=== PATIENT | female | born 1965 | race Caucasian/White ===

== ENCOUNTER 2017-12-31 00:16 | Outpatient (CLI) | payer BC, SELFPAY ==
[2017-12-31 10:19] LABS: Abs Immature Grans 0.01 k/cumm (0.0-0.09); Absolute Basophil Count 0.01 k/cumm (0.0-0.2); Absolute Eosinophil Count 0.14 k/cumm (0.0-0.7); Absolute Lymphocyte Count 1.34 k/cumm (1.2-3.4); Absolute Monocyte Count 0.51 k/cumm (0.11-0.7); Absolute Neutrophil Count 3.27 k/cumm (1.2-6.7); Basophils % 0.2; Eosinophils % 2.7; HGB 13.6 g/dL (12.0-15.5); Immature Grans % 0.2; Lymphocytes % 25.4; Mean Corp. HGB Concentration 32.4 g/dL (32.0-36.0); Mean Corpuscular Hemoglobin 30.1 pg (27.0-33.0); Mean Corpuscular Volume 92.9 fL (80-95); Monocytes % 9.7; Neutrophils % 61.8; Platelet Count 180 x1000/uL (130-400); RBC 4.52 m/cumm (4.00-5.20); RBC Distribution Width 13.1 % (11.7-14.6); White Blood Cell Count 5.28 k/cumm (4.4-10.8)
== END 2017-12-31 00:36 ==
PROVIDERS: PCP Nurse Practitioner Family; Visit Provider Family Medicine
DX: E07.9 Disorder of thyroid, unspecified (principal); Z79.899 Other long term (current) drug therapy
CPT/HCPCS: 36415; 85025

== ENCOUNTER 2018-02-11 10:29 | Outpatient (CLI) | payer BC, SELFPAY ==
[2018-02-11 11:21] LABS: Absolute Basophil Count 0.03 k/cumm (0.0-0.2); Absolute Eosinophil Count 0.11 k/cumm (0.0-0.7); Absolute Lymphocyte Count 1.25 k/cumm (1.2-3.4); Absolute Monocyte Count 0.43 k/cumm (0.11-0.7); Absolute Neutrophil Count 3.12 k/cumm (1.2-6.7); Basophils % 0.6; Eosinophils % 2.2; HCT 40.7 % (36.0-46.0); HGB 13.4 g/dL (12.0-15.5); Lymphocytes % 25.3; Mean Corp. HGB Concentration 32.9 g/dL (32.0-36.0); Mean Corpuscular Hemoglobin 30.6 pg (27.0-33.0); Mean Corpuscular Volume 92.9 fL (80-95); Mean Platelet Volume 11.1 fL (8.0-11.0); Monocytes % 8.7; Neutrophils % 63.2; Platelet Count 186 x1000/uL (130-400); RBC 4.38 m/cumm (4.00-5.20); RBC Distribution Width 14.2 % (11.7-14.6); White Blood Cell Count 4.94 k/cumm (4.4-10.8)
== END 2018-02-11 10:49 ==
PROVIDERS: PCP Nurse Practitioner Family; Visit Provider Nurse Practitioner Family
DX: E07.9 Disorder of thyroid, unspecified (principal); Z79.899 Other long term (current) drug therapy
CPT/HCPCS: 36415; 85025

== ENCOUNTER 2018-04-22 00:39 | Outpatient (CLI) | payer BC, SELFPAY ==
[2018-04-22 11:42] LABS: FREE T4 0.77 ng/dL (0.76-1.46); TSH 5.87 uIU/mL (0.358-3.74)
== END 2018-04-22 00:59 ==
PROVIDERS: Internal Medicine; PCP Nurse Practitioner Family; Visit Provider Nurse Practitioner Family
DX: E05.90 Thyrotoxicosis, unspecified without thyrotoxic crisis or storm (principal)
CPT/HCPCS: 36415; 84439; 84443

== ENCOUNTER 2018-05-10 01:33 | Outpatient (CLI) | payer BC, SELFPAY ==
--- NOTE | 2018-05-10 12:00 | DI.MAMMO_ITS ---
SYMPTOMS/DIAGNOSIS: SCREENING, Z12.39 MAMMOGRAM: Mammograms were interpreted according to the usual protocol including computer analysis with CAD system, tomosynthesis and C view imaging. The breasts are extremely dense. No dominant mass identified in either breast. There are scattered punctate microcalcifications. There is a stable grouping of punctate microcalcifications in the lower inner quadrant of the right breast unchanged from previous examinations including 11/18. No other significant change seen. CONCLUSION: No specific evidence of malignancy at this time. Routine screening examinations are suggested at yearly intervals due to the family history of breast carcinoma. Category I. Breast density Category D. MQSA ASSESSMENT OF FINDINGS: Negative. Category 1. Patient will receive a letter notifying them of these results. BI-RADS category D. The breasts are extremely dense, which lowers the sensitivity of mammography.
== END 2018-05-10 01:53 ==
PROVIDERS: PCP Nurse Practitioner Family; Visit Provider Nurse Practitioner Family
DX: Z12.31 Encounter for screening mammogram for malignant neoplasm of breast (principal); Z80.3 Family history of malignant neoplasm of breast
CPT/HCPCS: 77063; 77067

== ENCOUNTER 2018-11-01 01:53 | Outpatient (CLI) | payer BC, SELFPAY ==
[2018-11-01 13:02] LABS: FREE T4 0.81 ng/dL (0.76-1.46); TSH 2.01 uIU/mL (0.36-3.74)
== END 2018-11-01 02:13 ==
PROVIDERS: PCP Nurse Practitioner Family; Visit Provider Internal Medicine
DX: E05.90 Thyrotoxicosis, unspecified without thyrotoxic crisis or storm (principal)
CPT/HCPCS: 36415; 84439; 84443

== ENCOUNTER 2019-01-30 01:53 | Outpatient (CLI) | payer BC, SELFPAY ==
--- NOTE | 2019-01-30 09:47 | DI.US_ITS ---
Right mammogram and right breast ultrasound CLINICAL HISTORY: BREAST LUMP N63.0, PEA SIZED NODULE RT, 7-8 CM FROM [facility]OLA, 10 OCLOCK TECHNIQUE: Mammograms were interpreted according to the usual protocol including computer analysis w travayl CAD system, tomosynthesis and C-view imaging. Right breast ultrasound was obtained. COMPARISON: Comparison is made with prior examinations. FINDINGS: No suspicious masses or microcalcifications are present on the right mammogram. Skin and axilla are u nremarkable. Breast Density - Category D - Extremely dense Right targeted breast ultrasound was performed. There is a well-circumscribed, radially oriented hypo echoic mass in subcutaneous tissues of the right breast. This corresponds to the palpable abnormality . It measures 0.9 x 0.5 cm. There is eccentric blood flow present. The finding is suggestive of a lym ph node. IMPRESSION: 1. No evidence for malignancy. Yearly mammography is recommended. 2. Well-circumscribed hypoechoic nodule corresponding to the palpable abnormality. The finding sonogr aphically is suggestive of a benign lymph node. 3. BI-RADS Cat 2 - Benign Findings 4. Breast Density - Category D - Extremely dense 5. The findings were discussed with the patient on the date of the examination. BI-RADS Cat 2 - Benign Findings. 6. Breast Density - Category D - Extremely dense
--- NOTE | 2019-01-30 10:39 | DI.MAMMO_ITS ---
Right mammogram and right breast ultrasound CLINICAL HISTORY: BREAST LUMP N63.0, PEA SIZED NODULE RT, 7-8 CM FROM AREOLA, 10 OCLOCK TECHNIQUE: Mammograms were interpreted according to the usual protocol including computer analysis w [employer] CAD system, tomosynthesis and C-view imaging. Right breast ultrasound was obtained. COMPARISON: Comparison is made with prior examinations. FINDINGS: No suspicious masses or microcalcifications are present on the right mammogram. Skin and axilla are u nremarkable. Breast Density - Category D - Extremely dense Right targeted breast ultrasound was performed. There is a well-circumscribed, radially oriented hypo echoic mass in subcutaneous tissues of the right breast. This corresponds to the palpable abnormality . It measures 0.9 x 0.5 cm. There is eccentric blood flow present. The finding is suggestive of a lym ph node. IMPRESSION: 1. No evidence for malignancy. Yearly mammography is recommended. 2. Well-circumscribed hypoechoic nodule corresponding to the palpable abnormality. The finding sonogr aphically is suggestive of a benign lymph node. 3. BI-RADS Cat 2 - Benign Findings 4. Breast Density - Category D - Extremely dense 5. The findings were discussed with the patient on the date of the examination. BI-RADS Cat 2 - Benign Findings. Breast Density - Category D - Extremely dense.
== END 2019-01-30 02:13 ==
PROVIDERS: PCP Nurse Practitioner Family; Visit Provider Family Medicine
DX: N63.11 Unspecified lump in the right breast, upper outer quadrant (principal); R59.0 Localized enlarged lymph nodes
CPT/HCPCS: 76642; 77061; 77065; G0279

== ENCOUNTER 2019-03-15 12:28 | Outpatient (REF) | payer BC, SELFPAY ==
--- NOTE | 2019-03-15 11:30 | PAPFT_PTH ---
PATIENT: MARK THAKUR LOC: [facility] U#:[id number] AGE/SX: 54/F ROOM: RE03/15/[address]: CATE Mann : 1965 BED: DIS: 03/15/2019 SPEC #: [id number] RECD: 03/15/19 12:55 STATUS: MUNIRA REQ #: [id number] LULY: 03/15/19 11:[address]: Jessica Weber DEPT: [facility] Cytology RECD BY: Jayla Williamson ENTERED: 03/15/19 12:55 SP TYPE: PAPFT OTHR DR: Antelmo Herrera Tissues: 1 - CX/ENDOCX FOR PAP SMEARS Procedures: PAP THIN PREP/UVM Screening HPV DNA PROBE Comments: [id number]
== END 2019-03-15 12:48 ==
LOC: LBN 12:28
PROVIDERS: PCP Nurse Practitioner Family; Visit Provider Nurse Practitioner Family
DX: Z12.4 Encounter for screening for malignant neoplasm of cervix (principal)
CPT/HCPCS: 88142; 87624

== ENCOUNTER 2019-04-02 01:40 | Outpatient (CLI) | payer BC, SELFPAY ==
[2019-04-02 11:19] LABS: FREE T4 0.77 ng/dL (0.76-1.46); TSH 1.49 uIU/mL (0.36-3.74)
== END 2019-04-02 02:00 ==
PROVIDERS: PCP Nurse Practitioner Family; Visit Provider Internal Medicine
DX: E05.90 Thyrotoxicosis, unspecified without thyrotoxic crisis or storm (principal)
CPT/HCPCS: 36415; 84439; 84443

== ENCOUNTER 2019-04-21 01:44 | Outpatient (CLI) | payer BC, SELFPAY ==
[2019-04-21 12:27] LABS: FREE T4 0.87 ng/dL (0.76-1.46); TSH 1.71 uIU/mL (0.36-3.74)
== END 2019-04-21 02:04 ==
PROVIDERS: PCP Nurse Practitioner Family; Visit Provider Internal Medicine
DX: E05.90 Thyrotoxicosis, unspecified without thyrotoxic crisis or storm (principal)
CPT/HCPCS: 36415; 84439; 84443

== ENCOUNTER 2019-10-16 16:48 | Outpatient (REF) | payer BC, SELFPAY ==
[2019-10-18 09:46] LABS: HBs Antibody, Quant <3.1 mIU/mL (See Note); Hepatitis B Surface Ab Negative (See Note)
== END 2019-10-16 17:08 ==
LOC: NCHCN 16:48
PROVIDERS: PCP Nurse Practitioner Family; Visit Provider Nurse Practitioner Family
DX: Z11.59 Encounter for screening for other viral diseases (principal); Z01.84 Encounter for antibody response examination
CPT/HCPCS: 86706

== ENCOUNTER 2020-05-09 20:06 | Outpatient (REF) | payer BC, SELFPAY ==
[2020-05-09 18:29] LABS: HCT 40.3 % (36.0-46.0); MCH 30.9 pg (27.0-33.0); MCHC 32.3 % (32.0-36.0); MCV 95.7 fL (80-95); MPV 11.1 fL (8.0-11.0); Platelet Count 203 10^3/uL (130-400); RBC 4.21 10^6/uL (3.93-5.22); RDW 13.4 % (11.7-14.6); RDW-SD 47.3 fL; WBC 7.87 10^3/uL (4.4-10.8)
[2020-05-09 19:37] LABS: ALT 16 U/L (14-59); AST 15 U/L (15-37); Albumin 3.9 g/dL (3.4-5.0); Alkaline Phosphatase 71 U/L (46-116); BUN 20 mg/dL (7-18); Bilirubin, Total 0.5 mg/dL (0.2-1.0); Calcium 9.2 mg/dL (8.5-10.1); Chloride 105 mmol/L (98-107); Estimated GFR 57.78 (mL/min/1.73m2); Folate 17.5 ng/mL (8.6-20.0); Glucose 80 mg/dL (74-106); Magnesium 1.9 mg/dL (1.8-2.4); Sodium 142 mmol/L (136-145); TSH (W/Ref FT4) 1.69 uIU/mL (0.36-3.74); Total Protein 7.3 g/dL (6.4-8.2); Vitamin B12 670 pg/mL (193-986)
[2020-05-12 10:43] LABS: Hepatitis C Ab w Rflx HCV PCR Negative (Negative)
[2020-05-12 11:37] LABS: HIV-1/2 Ag & Ab Screen Negative (Negative)
== END 2020-05-09 20:07 | disposition home or self-care (01) ==
LOC: NCHCN 20:06
PROVIDERS: PCP Nurse Practitioner Family; Visit Provider Nurse Practitioner Family
DX: R55 Syncope and collapse (principal); R07.9 Chest pain, unspecified; R06.02 Shortness of breath; Z11.4 Encounter for screening for human immunodeficiency virus [HIV]; Z11.59 Encounter for screening for other viral diseases
CPT/HCPCS: 80053; 85027; 86803; 87389; 82607; 82746; 83735; 84443

== ENCOUNTER 2020-05-13 00:46 | Outpatient (CLI) | payer BC, SELFPAY ==
--- NOTE | 2020-05-13 13:00 | ETT_ITS ---
APPROVED REPORT Exam: Exercise Treadmill Patient Location: Out-Patient Room/Bed: Stress Nurse: Maliha Henriquez RN Ordering Provider:LOKESH BONILLA, Contact Number: BMI: 22.09 Baseline Rhythm: Sinus Rhythm Comment: PVC Indications: chest pain, sob, smoker, fainting episodes Medical History Medical History: Grave's disease, childhood asthma, smoker Cardiac Medications: None Allergies: Amoxicillin, codeine Cardiac Risk Factors: Family hx, smoker, asthma (childhood) Previous Cardiac Procedures: None Pretest Chest Pain Characteristics: None Exercise History: Physically active Physical Disabilities: None Lung Sounds: Clear to auscultation Heart Sounds: Regular Stress Test Details Test: Exercise stress testing was performed using a Gareth protocol. Rest Stress HR Resting HR Supine: 61 bpm Max Heart Rate (APMHR): 166 bpm Resting HR Standin bpm Target HR (85% APMHR): 141 bpm Max HR Achieved: 152 bpm % of APMHR: 91 Recovery HR: 82 bpm HR response to stress: Normal HR response to stress BP Resting BP Supine: 116/72 mmHg Resting BP Standin/76 mmHg Max BP: 182/76 mmHg Recovery BP: 126/80 mmHg BP response to stress: Normal blood pressure response to stress. ECG Resting ECG: Sinus Rhythm Ectopy: PVC Stress ECG: Sinus Tachycardia ST Change: No significant ST segment changes noted Arrhythmia: Occassional PVCs, PAC Recovery ECG: Sinus Rhythm Recovery ST Change: No significant ST segment changes noted Recovery Arrhythmia: PACs Clinical Reason for Termination: Dyspnea, Fatigue Stress Symptoms: Dyspnea Exercise duration: 11 min14 sec Highest Stage Reached: Stage 4: 4.2 mph at 16% grade. Exercise capacity: 13.48 METs Kevin Treadmill Score: 11 Rate Pressure Product: [id number] Stress ECG Conclusion 1. The patient exercised for 11 minutes (13 METS). The patient had normal heart rate and blood press ure response to exercise 2. The patient had no symptoms suggestive of ischemia. There were occasional PVCs during peak exerti on. 3. There was no evidence of ischemia on the ECG portion of the exam. Kevin Treadmill Score is 11 which is Low risk. Stress Test Summary STAGE Time (mins) Speed (mph) Grade (%) HR BP SYMPTOMS METS Supine 61 116/72 Standing 77 118/76 1 3 1.7 10 98 126/72 4.6 2 6 2.5 12 124 144/76 SOB 7 3 9 3.4 14 152 160/78 10.2 1 min recovery 141 182/76 3 min recovery 87 168/80 symtoms resloved 6 min recovery 82 126/80
== END 2020-05-13 00:47 ==
LOC: DI 00:47
PROVIDERS: PCP Nurse Practitioner Family; Visit Provider Nurse Practitioner Family
DX: R06.02 Shortness of breath (principal); F17.210 Nicotine dependence, cigarettes, uncomplicated; R55 Syncope and collapse; Z82.49 Family history of ischemic heart disease and other diseases of the circulatory system; J45.909 Unspecified asthma, uncomplicated
CPT/HCPCS: 93017

== ENCOUNTER 2020-05-16 16:30 | Outpatient (RCR) | payer BC, SELFPAY ==
--- NOTE | 2020-05-16 16:30 | HOLTER_ITS ---
APPROVED REPORT Exam Type: HOLTER MONITOR APPLICATION Reason for Test: SOB R06.02, CHEST PAIN R07.9 Patient Location: O Conclusion This is a 48-hour Holter monitor ordered for indication of shortness of breath. 1 patient was in normal sinus rhythm for the majority of the recording with an average heart rate of 76 bpm. 2 patient had rare PACs and rare PVCs. 3 there were no episodes of ventricular tachycardia or supraventricular tachycardia. 4 there were no episodes of atrial fibrillation, no pauses greater than 3 seconds and no evidence of high degree heart block. 5 patient triggered events were associated with sinus rhythm and sinus tachycardia.
== END 2020-05-16 16:31 | disposition home or self-care (01) ==
LOC: RT 16:30
PROVIDERS: PCP Nurse Practitioner Family; Visit Provider Nurse Practitioner Family
DX: R06.02 Shortness of breath (principal); R07.9 Chest pain, unspecified
CPT/HCPCS: 93225; 93226

== ENCOUNTER 2020-06-05 02:25 | Outpatient (CLI) | payer BC, SELFPAY ==
--- NOTE | 2020-06-05 14:29 | DI.MAMMO_ITS ---
EXAM: MG MAMMO DIAGNOSTIC BI and U/S breast RT limited CLINICAL HISTORY: DIAGNOSTIC, RT BREAST LUMP, N63.0. TECHNIQUE: Craniocaudal and mediolateral oblique Full Field Digital Mammography views of the right b reast with Computer Aided Diagnosis followed by Tomosynthesis and right breast ultrasound. COMPARISON: Previous available for comparison. FINDINGS: Mammography/Tomosynthesis: Masses/Architectural Distortion: None seen. Microcalcifictions: No suspicious pleomorphic-type are seen. Skin Thickening/Nipple Retraction: None. Right breast US: Echotexture: Normal appearance of the glandular tissue. Shadowing: No suspicious foci. Cyst: None. Solid lesions: None seen. Ductal dilation: None. IMPRESSION: 1. No evidence of malignancy is noted. 2. Unless there is more urgent need, follow-up screening mammography is recommended, as per [employer] [place] [employer] guidelines. 3. The findings were discussed with the patient on the date of the examination. BI-RADS Category 1 - Negative Breast Density - Category D - Extremely dense Breast density Category C or D implies that the patient has dense breast tissue. Dense breast tissue can make it harder to find cancer on a mammogram. Dense breast tissue is also associated with an incr eased risk of breast cancer. This information about the result of the mammogram report was provided to the patient to raise their awareness. Use this report when you speak with the patient about their risks for breast cancer, which includes their family history. At that time, you may recommend additional screening tests (Ultrasoun d or MRI) as these tests may add significant information. A negative radiographic report should not delay biopsy if a dominant or clinically suspicious mass is present. Up to ten percent of cancers are not identified on mammography. A negative report may reinforce clinical impression. Adenosis and dense breasts may obscure an underlying neoplasm. False positive reports average 6 to 10%. Patient will receive a letter notifying them of these results.
--- NOTE | 2020-06-05 15:20 | DI.US_ITS ---
APPROVED REPORT EXAM: Comprehensive 2D, Doppler, and color-flow Echocardiogram Patient Location: Out-Patient [facility] Instructor: Gricel Zazueta RDCS (AE) Indications: Chest pain, SOB, Fainting episodes, Smoker Other Information Study Quality: Adequate Conclusion Left Ventricle : The left ventricle is normal size. The left ventricular systolic function is normal. The left ventricular ejection fraction is within the normal range. There is normal left ventricular wall thickness. There is normal LV segmental wall motion. The left ventricular diastolic function is normal. LVEF is 58%. Right Ventricle : The right ventricle is normal size. The right ventricular systolic function is norm al. Atria : The left atrium size is normal. The right atrium size is normal. Mitral Valve : The mitral valve is normal in structure. Mild mitral regurgitation. No evidence of akira ral valve stenosis. Great Vessels : The aortic root is normal in size. Ascending aorta is not well visualized. Aortic arc h is normal in caliber. IVC is normal in size and collapses >50% with inspiration. See remainder of study for further details. Wall motion Left Ventricle The left ventricle is normal size. The left ventricular systolic function is normal. The left ventric ular ejection fraction is within the normal range. There is normal left ventricular wall thickness. T here is normal LV segmental wall motion. The left ventricular diastolic function is normal. There is no ventricular septal defect visualized. LVEF is 58%. Right Ventricle The right ventricle is normal size. The right ventricular systolic function is normal. Atria The left atrium size is normal. The right atrium size is normal. The interatrial septum is intact wit h no evidence for an atrial septal defect. Aortic Valve The aortic valve is normal in structure. Aortic valve is trileaflet. There is no aortic valvular sten osis. No aortic regurgitation is present. Mitral Valve The mitral valve is normal in structure. No evidence of mitral valve stenosis. Mild mitral regurgitat ion. Tricuspid Valve The tricuspid valve is normal in structure. There is no tricuspid valve stenosis. Trace tricuspid reg urgitation. Unable to assess PA pressure. Pulmonic Valve Pulmonic valve is not well visualized. There is no pulmonic valvular stenosis. There is no pulmonic v alvular regurgitation. Great Vessels The aortic root is normal in size. Ascending aorta is not well visualized. Aortic arch is normal in c aliber. IVC is normal in size and collapses >50% with inspiration. Pericardium There is no pericardial effusion. 2D Dimensions IVSD d PLAX 0.84 cm F: 0.6-1.0 LV Vol A2C d MOD 99.6 mL LVPW d PLAX 0.85 cm F: 0.6 - 1.0 LV Vol A4C d MOD 95.6 mL LVID d PLAX 4.49 cm F: 3.8 - 5.2 LA vol/ BSA A2C s A-L 30.9 mL/m2 LVDs 3.10 cm F: 2.2 - 3.5 LA vol/ BSA A4C s A-L 18.4 mL/m2 Ao Root d 2.73 cm F: 2.7 - 3.3 LA Vol/ BSA Biplane s A-L 24.0 mL/m2 RA Area A4C 11.74 cm2 LA Area A4C s MOD 13.85 cm2 RA Vol/ BSA A4C s A-L 15.7 mL/m2 LA Area A2C s MOD 18.11 cm2 LV EF Teichholz 58.7 % LV EF A4C MOD 58.1 % LVEF (Chen's) 58.38 % F: 54 - 74 LV EF A2C MOD 58.3 % LV Volume 77.15 mL F: 46 - 106 LV EF Biplane MOD 58.4 % LV Volume Index 41.92 mL/m2 F: 29 - 61 SV 58.44 mL LV Vol Biplane MOD 100.1 mL SV Index 31.64 mL/m2 FS 30.85 % M-Mode TAPSE 1.89 cm (M/F) >1.7 LV Diastology MV E' medial 0.097 (>0.07 m/s) E/A Ratio 1.3 LV E/e MED 6.80 (<14) MV E Vmax 0.66 (0.4-1.3 m/s) MV E' lateral 0.145 (>0.1 m/s) MV A Vmax 0.50 (0.4-1.3 m/s) LV E/e LAT 4.50 (<14) MV E/A Ratio 1.26 MV E/E' medial 6.84 MV E/E' lateral 4.54 Aortic Valve LVOT Area 3.23 cm2 AoV Area Vmax 2.60 cm2 LVOT Vmax 1.09 m/s AoV Area/ BSA (Vmax) 1.41 cm2/m2 LVOT Mean Maciel. 0.67 m/s PARRISH Mean Maciel. 2.31 cm2 LVOT Peak Grad 4.8 mmHg PARRISH Mean Maciel. Index 1.25 cm2/m2 LVOT Mean Grad 2.2 mmHg LVOT VTI 0.231 m LVOT Diam s 2.00 cm AoV Vmax 1.35 m/s Velocity Ratio 0.80 AoV Mean Maciel. 0.94 m/s AoV Peak Grad 7.3 mmHg LVOT SV 74.65 mL AoV Mean Grad 4.0 mmHg AoV VTI 0.257 m AoV Area VTI 2.91 cm2 AoV Area/ BSA (VTI) 1.58 cm/m2 Mitral Valve MV DT 234 (160-240 msec) MV PHT 68 msec MV Area PHT 3.24 cm2 MV VTI 0.312 m MV Area VTI 2.39 (4.0-6.0 cm2) Pulmonary Valve PV Vmax 0.71 (0.5-1.5 m/s) RVOT Peak Gr. 1.66 mmHg PV Peak Grad 2.0 mmHg RVOT Mean Gr. 0.80 mmHg PV Mean Grad 1.0 mmHg RVOT VTI 0.142 m PV VTI 0.145 m RVOT Vmax 0.64 m/s
== END 2020-06-05 02:45 ==
PROVIDERS: PCP Nurse Practitioner Family; Visit Provider Nurse Practitioner Family
DX: N63.10 Unspecified lump in the right breast, unspecified quadrant (principal); Z12.31 Encounter for screening mammogram for malignant neoplasm of breast; R07.9 Chest pain, unspecified; R06.02 Shortness of breath; R55 Syncope and collapse; F17.210 Nicotine dependence, cigarettes, uncomplicated; I34.0 Nonrheumatic mitral (valve) insufficiency
CPT/HCPCS: 76642; 77062; 77066; 93306; G0279